=== PATIENT | male | born 2000 | race Two or more races ===

== ENCOUNTER 2022-11-07 23:45 | Emergency (ER) | payer MEDICAID, OTHER ==
[~2022-11-07] VITALS: Ht 175.3 cm; Wt 49.9 kg
[2022-11-08] MEDS ORDERED: IV LACTATED RINGERS SOLUTION 1,000 ML IV ONE (01:00)
[2022-11-08] MEDS ORDERED: ONDANSETRON 4 MG/2 ML VIAL IV ONE (01:00)
[2022-11-08] MEDS ORDERED: DICYCLOMINE HCL LIQ 10 MG/5 ML UDC PO ONE (01:00)
[2022-11-08] MEDS ORDERED: DICYCLOMINE HCL LIQ 10 MG/5 ML UDC ONE (01:06)
[2022-11-08] MEDS ORDERED: ONDANSETRON 4 MG/2 ML VIAL ONE (01:06)
[2022-11-08 01:13] LABS: HEMATOCRIT 44.7 % (36.7-47.1); MEAN CORPUSCULAR HEMOGLOBIN 30.6 uug (23.8-33.4); MEAN CORPUSCULAR VOLUME 92.3 fL (73.0-96.2); PLATELET COUNT (AUTO) 241 K/uL (152-348)
--- NOTE | 2022-11-08 01:15 | NUR ---
BIB family from home with c/o nausea, vomiting and diarrhea. Assisted into a gown, informed of plan of care, #20g established in left ac, blood collected and sent to lab. Patient is alert and oriented x4, no s/s of any distress noted at this time. IVF infusiing as per order, family remains at bedside, will continue to monitor.
--- NOTE | 2022-11-08 01:57 | NUR ---
Resting without c/o, family remaines at bedside IVF infusing as ordered.
[2022-11-08 01:59] LABS: POTASSIUM 3.5 mmol/L (3.5-5.1)
--- NOTE | 2022-11-08 02:17 | NUR ---
Patient up to bathroom and back to bed, states feels much better, awaiting MD re-eval. IVF done.
--- NOTE | 2022-11-08 02:56 | NUR ---
ER MD at bedside talking with patient.
[2022-11-08] MEDS ORDERED: DICY20TA11 PO (03:01)
[2022-11-08] MEDS ORDERED: ONDA4TAB5 PO (03:01)
[2022-11-08 03:03] VITALS: BP 119/55
--- NOTE | 2022-11-08 03:22 | NUR ---
ACI given< HL removed okay for discharge home with family.
== END 2022-11-08 03:04 | disposition home or self-care (01) ==
LOC: ER 23:45
DX: R19.7 Diarrhea, unspecified (principal); R11.2 Nausea with vomiting, unspecified
CPT/HCPCS: 99284; 96374; 96361; 80048; 85025; 36415; J2405; J7120; A4663